=== PATIENT | female | born 1990 | race Caucasian/White ===

== ENCOUNTER 2017-10-13 17:58 | Emergency (ER) | payer BC, OTHER ==
[2017-10-13 18:25] VITALS: BP 131/92
[2017-10-13] MEDS ORDERED: KETOROLAC TROMETHAMINE 60 MG/2 ML VIAL IM ONE (18:26)
--- NOTE | 2017-10-13 18:28 | ED Physician Documentation ---
Sore Throat/Dental Pain - HISTORIAN Historian: patient - HPI Stated Complaint: Dental pain Chief Complaint: Dental Pain Further Comments: yes (27 year old female patient presents with complaint of dental pain. "I need a prescription for pain medication". Used ibuprofen yesterday, "it did not help") - ROS CONST: no problems CVS/RESP: none GI/: denies: nausea, vomiting NEURO/PSYCH: none - PAST HX Past History: gum disease Other History: none Allergies/Adverse Reactions: Allergies Allergy/AdvReac Type Severity Reaction Status Date / Time No Known Allergies Allergy Verified 10/13/17 18:25 Home Medications: Ambulatory Orders Medication Instructions Recorded NK [NK] 12/07/15 - SOCIAL HX Smoking History: cigarettes - FAMILY HX Family History: No - VITAL SIGNS Vital Signs: Vital Signs Temp Pulse Resp BP Pulse Ox 98.3 F 108 H 16 131/92 92 10/13/17 18:10 10/13/17 18:10 10/13/17 18:10 10/13/17 18:10 10/13/17 18:10 - REVIEWED ASSESSMENTS Nursing Assessment Reviewed: Yes Vitals Reviewed: Yes Progress - Progress Progress: Explained ibuprofen was a better choice for pain management. Will not prescribe narcotic for dental pain. Patient medicated with toradol for pain. ED Results Lab/Radiology - Orders Orders: ED Orders Category Date Time Status Ketorolac Tromethamine [Toradol] Med 10/13/17 18:26 Once 60 mg IM NOW ONE Dental Pain Physical Exam - EXAM General Appearance: no acute distress, alert Head/Neck: head nml inspection, trachea midline, no lymphadenopathy, thyroid nml , neck nml inspection Mouth/Throat: lips nml, gums nml, pharynx nml, voice nml, no drooling, no air way problems, no thrush, membranes nml, widespread dental decay, other ( multiple missing teeth; #18 with decay to pulp - no erythema, no abscess noted) Respiratory: no resp. distress CVS: reg. rate & rhythm Skin: normal color, warm/dry, NR, INT, PAL, DR Neuro/Psych: none Discharge Clincal Impression: Dental caries, Pain, dental Referrals: Primary Doctor,No [Primary Care Provider] - 2 Days Additional Instructions: Ibuprofen 800mg every 8 hours x 3 days Tylenol 650-1000mg every 4 hours as needed for pain, limit your dose to 4G in 24 hours. Over the counter DenTek - follow package directions. Over the counter Orajel as needed for pain See your dentist as soon as possible Condition: Stable Disposition: 01 HOME, SELF-CARE Decision to Admit: NO Decision Time: 18:27
== END 2017-10-13 18:30 | disposition home or self-care (01) ==
LOC: ED 17:58
DX: K02.9 Dental caries, unspecified (principal); K08.89 Other specified disorders of teeth and supporting structures
CPT/HCPCS: 96372; J1885

== ENCOUNTER 2017-10-24 15:33 | Emergency (ER) | payer BC ==
[2017-10-24 16:12] VITALS: BP 121/81
--- NOTE | 2017-10-24 16:20 | ED Physician Documentation ---
Skin Rash - HISTORIAN Historian: patient - HPI Stated Complaint: red sore finger Chief Complaint: Skin Rash Onset: days ago (unsure) Further Comments: yes (27 year old female patient presents with complaint of red , swollen left 3rd distal finger tip. Unsure of onset; denies injury. Attempting to squeeze drainage from tip.) - ROS CONST: none CVS/RESP: none EYES/ENT: none GI/: none MS/SKIN/LYMPH: none NEURO/PSYCH: none - PAST HX Past History: other (Patient is extremely poor historian; reports medical history as negative.) Allergies/Adverse Reactions: Allergies Allergy/AdvReac Type Severity Reaction Status Date / Time No Known Allergies Allergy Verified 10/24/17 16:13 Home Medications: Ambulatory Orders Medication Instructions Recorded Sulfamethoxazole/Trimethoprim 1 each PO BID #14 tab 10/24/17 [Bactrim Ds] - SOCIAL HX Smoking History: non-smoker - FAMILY HX Family History: denies: none - VITAL SIGNS Vital Signs: Vital Signs Temp Pulse Resp BP Pulse Ox 98.0 F 72 16 121/81 10/24/17 15:45 10/24/17 16:44 10/24/17 16:44 10/24/17 15:45 - REVIEWED ASSESSMENTS Nursing Assessment Reviewed: Yes Vitals Reviewed: Yes Progress - Progress Progress: instructed patient to stop squeezing finger. List of primary care doctors provided. Wound care instructions reviewed; verbalized understanding. Skin Rash Physical Exam - EXAM General Appearance: mild distress Skin: warm,dry Location: other (left 3rd finger tip and nail bed with erythema and pin point dark bloody area) Symptoms: tenderness, swelling. No: warmth Respiratory: no resp distress CVS: reg. rate & rhythm Neuro/Psych: oriented x3, motor nml, sensation nml, mood/affect nml Discharge Clincal Impression: Paronychia Prescriptions: Sulfamethoxazole/Trimethoprim [Bactrim Ds] 1 each PO BID #14 tab Referrals: Primary Doctor,No [Primary Care Provider] - 2 Days Additional Instructions: Clean the laceration twice a day with hibiclens and rinse with water clean away any scabbed area Apply thin coat of antibiotic ointment after cleaning the wound. Cover with non-adherent bandage if able. If you have pain, take simple pain relief medication such as Tylenol or ibuprofen. supervisor model making your antibiotic and start it today. Establish primary care and follow up next week for a wound recheck. Condition: Stable Disposition: 01 HOME, SELF-CARE Decision to Admit: NO Decision Time: 16:21
== END 2017-10-24 16:38 | disposition home or self-care (01) ==
LOC: ED 15:33
DX: L03.012 Cellulitis of left finger (principal)